=== PATIENT | male | born 1945 | race Caucasian/White ===

== ENCOUNTER 2016-11-29 12:06 | Day surgery (SDC) | payer BC ==
--- NOTE | ~2016-11-29 | EGD ---
EGD REPORT [facility] [address] [id number] NAME: HIRAM RUIZ JR : [birth year] STATUS : REG [facility]#: [id number] AGE: 71 ADM/REG DATE : 11/29/16 MR#: [id number] REPORT SERV DATE: 11/29/16 DICTATED BY: KEILY MCKEE DATE: 11/29/16 REPORT STATUS : Draft [facility]ANS[facility]: [facility] DATE: 11/29/16 Endoscopy Center Patient Name: Hiram Ruiz Jr. Date of : 1945 Attending MD: KEILY MCKEE MD Procedure Date No Time: 11/29/2016 Procedure: Upper GI endoscopy Indications: Dysphagia Referring MD: Daniel Coe Medicines: See the Anesthesia note for documentation of the administered medications Complications: No immediate complications. Procedure: Pre-Anesthesia Assessment: - ASA Grade Assessment: III - A patient with severe systemic disease. After obtaining informed consent, the endoscope was passed under direct vision. Throughout the procedure, the patient's blood pressure, pulse, and oxygen saturations were monitored continuously. The GIF [id number] was introduced through the mouth, and advanced to the second part of duodenum. The upper GI endoscopy was accomplished without difficulty. The patient tolerated the procedure well. Findings: The examined duodenum was normal. Mild inflammation was found in the gastric antrum. Biopsies were taken with a cold forceps for histology. The cardia and gastric fundus were normal on retroflexion. A 2 cm hiatus hernia was present. A mild Schatzki ring (acquired) was found at the gastroesophageal junction. A guidewire was placed and the scope was withdrawn. Dilation was performed with a Savary dilator with no resistance at 45 Fr. Impression: - Normal examined duodenum. - Gastritis. Biopsied. - Hiatus hernia. - Mild Schatzki ring. Dilated. Recommendation: - Patient has a contact number available for emergencies. The signs and symptoms of potential delayed complications were discussed with the patient. Return to normal activities tomorrow. Written discharge instructions were provided to the patient. - Clear liquid diet today. EGD REPORT [address] [address] NAME: HIRAM RUIZ JR : [birth year] STATUS : REG [facility]#: [id number] AGE: 71 ADM/REG DATE : 11/29/16 MR#: [id number] REPORT SERV DATE: 11/29/16 DICTATED BY: KEILY MCKEE DATE: 11/29/16 REPORT STATUS : Draft TRANSCRIBED BY: [email or web address] DATE: 11/29/16 - Clear liquids today, soft diet tomorrow, regular diet the following day - Continue present medications. - FOR YOUR BIOPSY RESULTS: Please go to [email or web address] and register to receive your results via the portal. Your biopsy results will be posted there in about 7 to 10 days. IF you do not see result in 10 days, call office. Procedure Code(s): --- Professional --- 19462, Esophagogastroduodenoscopy, flexible, transoral; with insertion of guide wire followed by passage of dilator(s) through esophagus over guide wire [id number], Esophagogastroduodenoscopy, flexible, transoral; with biopsy, single or multiple Diagnosis Code(s): --- Professional --- K29.70, Gastritis, unspecified, without bleeding K44.9, Diaphragmatic hernia without obstruction or gangrene K22.2, Esophageal obstruction R13.10, Dysphagia, unspecified CPT copyright 2013 [employer]. All rights reserved. The codes documented in this report are preliminary and upon curb setter review may be revised to meet current compliance requirements. Keily Mckee MD KEILY MCKEE MD 11/29/2016 2:05 PM This report has been signed electronically. Number of Addenda: 0 Note Initiated On: 11/29/2016 1:48 PM Scope Withdrawal Time 0 hours 0 minutes 0 seconds [id number] [place] [address]
[~2016-11-29 12:06] MED LIST: ASAB PO; GLUCOPHAGE1000 MG PO; HYZAAR 100/25 T1 TAB PO; JANUMET1 TA1 PO; LIPITOR80 MG PO; LOFIB67 PO; PAX20 PO; TOPXL50 PO
== END 2016-11-29 23:59 | disposition home health service (06) ==
LOC: DMU 12:06
PROVIDERS: Internal Medicine Gastroenterology
PROC: 0D748ZZ Dilation of Esophagogastric Junction, Via Natural or Artificial Opening Endoscopic (ICD-10-PCS; 2016-11-29)
PROC: 0DB68ZX Excision of Stomach, Via Natural or Artificial Opening Endoscopic, Diagnostic (ICD-10-PCS; principal; 2016-11-29 14:00)
DX: K44.9 Diaphragmatic hernia without obstruction or gangrene (principal); K22.2 Esophageal obstruction; E11.9 Type 2 diabetes mellitus without complications; I10 Essential (primary) hypertension; K21.9 Gastro-esophageal reflux disease without esophagitis; E78.00 Pure hypercholesterolemia, unspecified; Z95.1 Presence of aortocoronary bypass graft; Z90.49 Acquired absence of other specified parts of digestive tract; Z98.890 Other specified postprocedural states; Z87.891 Personal history of nicotine dependence; Z87.442 Personal history of urinary calculi
CPT/HCPCS: 82962; 88305